=== PATIENT | female | born 1985 | race African-American/Black ===

== ENCOUNTER 2017-03-29 08:04 | Emergency (ER) | payer OTHER, MEDICAID ==
[~2017-03-29] VITALS: Ht 165.1 cm; Wt 58.5 kg
[2017-03-29 08:22] VITALS: BP 126/71
[2017-03-29] MEDS: HYDROcodone/APAP 5/325 MG 1 TAB TAB PO ONE (09:54)
[2017-03-29 11:45] VITALS: BP 127/79
== END 2017-03-29 11:55 | disposition home or self-care (01) ==
LOC: MED 08:04
DX: S13.9XXA Sprain of joints and ligaments of unspecified parts of neck, initial encounter (principal); Z88.6 Allergy status to analgesic agent; V43.52XA Car driver injured in collision with other type car in traffic accident, initial encounter; Y93.I9 Activity, other involving external motion; Y92.488 Other paved roadways as the place of occurrence of the external cause; Y99.8 Other external cause status
CPT/HCPCS: 72040; 72110; 81025; 99285

== ENCOUNTER 2017-05-22 14:38 | Emergency (ER) | payer OTHER, MEDICAID ==
[~2017-05-22] VITALS: Ht 165.1 cm; Wt 62.7 kg
[2017-05-22 15:59] VITALS: BP 123/83
--- NOTE | 2017-05-22 17:00 | NUR ---
Patient to bed 07.
[2017-05-22] MEDS ORDERED: predniSONE 20 MG TAB PO ONE (17:20)
[2017-05-22] MEDS ORDERED: ALBUTEROL 0.083% 2.5 MG/3 ML NEBU INH ONE (17:20)
--- NOTE | 2017-05-22 17:22 | NUR ---
XIMENA Sadler evaluating patient.
--- NOTE | 2017-05-22 17:33 | NUR ---
ADMITTING DX: COUGH HX: PATIENT STATES BRONCHITIS LOC AWAKE AND ALERT HFW POSITION SKIN TONE PINK EDUCATION PROVIDED TO PATIENT WITH ACKNOWLEDGEMENT ON HHN HTERAPY AND RESPIRATORY DRUG HHN THERAPY GIVEN ORDERED ENCOURAGED DEEP BREATHING DURING THERAPY TOLERATED WELL WITHOUT INCIDENT
--- NOTE | 2017-05-22 17:38 | NUR ---
ONGOING WITH KAYDEN
[2017-05-22 18:28] VITALS: BP 128/71
--- NOTE | 2017-05-22 18:29 | NUR ---
Patient discharged with v/s stable. Written and verbal after care instructions given and explained. Patient alert, oriented and verbalized understanding of instructions. Ambulatory with steady gait. All questions addressed prior to discharge. ID band removed. Patient advised to follow up with PMD. Rx of VENTOLIN ,DEXTROMETHORPHAN,PREDNISONE given. Patient educated on indication of medication including possible reaction and side effects. Opportunity to ask questions provided and answered.ENCOURAGED FLUID INTAKE AND PT AGREED WITH IT.
== END 2017-05-22 18:29 | disposition home or self-care (01) ==
LOC: MED 14:38
DX: J06.9 Acute upper respiratory infection, unspecified (principal); F17.200 Nicotine dependence, unspecified, uncomplicated
CPT/HCPCS: 94640; 99283; J7512; J7613